=== PATIENT | female | born 1980 | race Caucasian/White ===

== ENCOUNTER 2020-03-07 17:45 | Emergency (ER) | payer OTHER, SELFPAY ==
[2020-03-07 18:25] VITALS: BP 195/83; PULSE 104; RESP 18; TEMP 36.6; O2SAT 98; BMI 39.9
[2020-03-07 18:45] VITALS: BP 138/75; PULSE 103; RESP 15; TEMP 36.6
--- NOTE | 2020-03-07 19:31 | ED.GENADULT ---
HPI - General Adult General Chief complaint: General Medical Stated complaint: RECTAL PAIN Time Seen by Provider: 03/07/20 19:20 Source: patient Mode of arrival: ambulatory Limitations: no limitations History of Present Illness HPI narrative: patient presents to ED for rectal pain and rectal bleeding. patient denies any abdominal pain, dizziness, weakness. Patient denies any recent rectal trauma. Patient thinks she has a hemorrhoid. Patient states symptoms been occurring for 1 week Related Data Home Medications Medication Instructions Recorded Confirmed clonidine HCl 0.2 mg PO BEDTIME 03/07/20 03/07/20 lorazepam 1 mg PO QID 03/07/20 03/07/20 omeprazole 40 mg PO DAILY 03/07/20 03/07/20 Previous Rx's Medication Instructions Recorded docusate sodium [Colace] 100 mg PO BID #20 cap 03/07/20 hydrocortisone acetate [Anusol-HC] 25 mg MT BID #12 ea 03/07/20 naproxen 500 mg PO BID PRN #20 tab 03/07/20 Allergies Allergy/AdvReac Type Severity Reaction Status Date / Time amoxicillin [AMOXICILLIN] Allergy Unknown HIVES Verified 03/07/20 18:01 Review of Systems Review of Systems: Yes all other systems are reviewed and are negative Constitutional: Constitutional: Reports as per HPI, Reports no additional constitutional complaints and Denies fatigue Eyes: Eyes: Reports as per HPI and Reports no additional eye complaints ENT: Reports system reviewed and no additional complaints, except as documented Cardiovascular: Cardiovascular: Reports as per HPI, Reports no additional cardiovascular complaints, Denies Abdominal Cramping after Meds, Denies Abdominal Distension, Denies acrocyanosis, Denies chest pain, Denies chest pain at rest, Denies chest pain with activity, Denies irregular heart rhythm, Denies lightheadedness, Denies dyspnea, Denies dyspnea on exertion, Denies orthopnea and Denies paroxysmal nocturnal dyspnea Respiratory: Respiratory: Reports as per HPI, Reports no additional respiratory complaints, Denies dyspnea and Denies dyspnea on exertion Gastrointestinal: Gastrointestinal: Reports hematochezia Comments: rectal pain Genitourinary: Genitourinary: Reports no additional female genitourinary complaints, Denies abnormal vaginal bleeding, Denies dyspareunia, Denies dysmenorrhea, Denies dysuria, Denies urinary incontinence, Denies urinary hesitancy and Denies urinary urgency Musculoskeletal: Musculoskeletal: Reports no additional musculoskeletal complaints Endocrine: Endocrine: Denies fatigue [facility] Past Medical History Medical History (Updated 03/08/20 @ 00:00 by Ari Cain) Anxiety delivery delivered Depression PTSD (post-traumatic stress disorder) Surgical History (Updated 03/07/20 @ 18:27 by Irish Lee) Hx of appendectomy Social History Social History Alcohol intake: never Smoking Status: Former smoker Use of substances other than those prescribed or required for medical reasons: Yes Substance Use Type: Marijuana Advance Directives: No Advance Directives Information Provided: No Physical Exam Vital Signs and I&O and Narrative: Vital Signs and I&O: Vital Signs Temp 98 F 03/07/20 20:09 Pulse 98 03/07/20 20:09 Resp 14 03/07/20 20:09 BP 157/72 H 03/07/20 20:09 Pulse Ox 96 03/07/20 20:09 Intake & Output 03/07/20 03/07/20 03/08/20 06:59 18:59 06:59 Weight 99 kg Body Mass Index 39.9 Const: General: cooperative, healthy appearing and comfortable Orientation/consciousness: oriented to person, oriented to place, oriented to time and patient oriented x3 HENMT: Head: Yes normal to inspection Mouth: Normal oral and palatal mucosa present Eyes: General: appearance normal, both eyes and all related structures Neck: Neck: Yes normal visual inspection and Yes full ROM Chest: Chest palpation & inspection: normal inspection of the chest and normal palpation of entire chest wall Resp: Effort & Inspection: normal respiratory effort, able to speak in complete sentences, normal respiratory pattern, no audible wheezes and no cough Auscultation: clear to auscultation bilaterally Cardio: Jugular venous distension: no JVD Rhythm: regular rhythm Heart sounds: S1 normal heart sound present and S2 normal heart sound present GI: Rectal Exam - Female: External hemorrhoid(s) present ( external hemorrhoid that is tender to palpation, and not thrombosed) : General: No CVA tenderness and Yes no CVA tenderness Back/Spine/Pelvis: Back: no CVA tenderness, No CVA tenderness, No mass, No erythema, No warmth, No sacral edema, No ecchymosis and No back tenderness Skin: General skin exam: no rashes or lesions noted Neuro: General: oriented to person, oriented to place, oriented to time, patient oriented x3, gait normal and CN's II-XI intact bilaterally Cranial nerves: Yes CN's II-XII intact bilaterally Extrem: General: Yes normal to inspection and Yes full ROM Psych: Appearance: grossly normal Course Course Course Narrative: Patient has external hemorrhoid that is not thrombosed. Hemorrhoid does not to be need to be cut. Patient has dried blood around rectum and hemorrhoid. Patient's blood pressure improved without any medical intervention. Patient does states when she is anxious blood pressure is high. Patient informed to follow-up with her PCP to recheck her blood pressure. Reevaluation(s) Reevaluation #1: Patient presently not in any distress. Patient educated on hemorrhoid care such as Sitz bath, Anusol cream, and Colace. Patient will be referred to surgery. Presently no intervention needed Time: 19:51 Medical Decision Making MDM Narrative Medical decision making narrative: external hemorrhoid that is not thrombosed. Patient will be discharged with Anusol, Colace, and pain meds. Patient will be referred to surgery. Lab Data Lab results reviewed: Yes I reviewed the patient's lab results. Labs: Lab Results 03/07/20 03/07/20 Range/Units 19:26 19:26 Urine Color YELLOW Urine Appearance CLEAR Urine pH 7.5 (5.0-8.0) Ur Specific [place] 1.015 (1.005-1.025) Urine Protein 1+ H (NEG-TRACE) MG/DL Urine Glucose (UA) NEG (NEG) MG/DL Urine Ketones NEG (NEG) MG/DL Urine Blood 2+ H (NEG) Urine Nitrite NEG (NEG) Ur Leukocyte Esterase TRACE H (NEG) Urine RBC 10-14 H (0) /HPF Urine WBC 0-2 (0-4) /HPF Ur Squamous Epith Cells 1+ /LPF Urine Bacteria 1+ /LPF Urine Test NEGATIVE (NEGATIVE) Discharge Plan Discharge Clinical Impression: Hemorrhoid Patient Disposition: Home, Self-Care Instructions: Hemorrhoids (ED) Additional Instructions: Return to the ED immediately for worsening bleeding, severe rectal pain, dizziness, weakness, headache, vomiting, vomiting blood, bloody urine, or any other concerning symptoms. Please follow-up with surgeon will be referred to. Recommend Sitz bath. Recommend high-fiber diet. Also recommend oral hydration with water. Also follow-up with your PCP due to 1 episode of elevated blood pressure in the ED. Prescriptions: New hydrocortisone acetate [Anusol-HC] 25 mg suppository 25 mg MT BID Qty: 12 RF: 0 docusate sodium [Colace] 100 mg capsule 100 mg PO BID Qty: 20 RF: 0 naproxen 500 mg tablet 500 mg PO BID PRN (Reason: pain) Qty: 20 RF: 0 No Action omeprazole 40 mg Capsule,Delayed Release(Dr/Ec) 40 mg PO DAILY RF: 0 lorazepam 1 mg Tablet 1 mg PO QID RF: 0 clonidine HCl 0.1 mg Tablet 0.2 mg PO BEDTIME RF: 0 Referrals: Yvan Allen MD [Physician] - 2 days ( External hemorrhoids for 1 week. Hemorrhoid is not thrombosed.) Interventions: ED Discharge Assessment Last Done: 03/07/20 20:08 Discharge Date/Time: 03/07/20 20:14
[2020-03-07 19:35] LABS: Glucose Urine UA NEG (NEG); Leukocyte Esterase Urine TRACE (NEG); Nitrite Urine NEG (NEG); PH 7.5 (5.0-8.0); Specific Gravity - Urine 1.015 (1.005-1.025); Urine Blood 2+ (NEG); Urine Ketones NEG (NEG); Urine Protein 1+ MG/DL (NEG-TRACE)
[2020-03-07 19:36] LABS: Appearance Urine CLEAR; Color Urine YELLOW; UPreg QC Valid YES; Urine Pregnancy NEGATIVE (NEGATIVE)
[2020-03-07 19:41] LABS: Bacteria Urine 1+ /LPF; Squamous Epithelial Cell Urine 1+ /LPF; WBC Urine 0-2 /HPF (0-4)
[2020-03-07 20:09] VITALS: BP 157/72; PULSE 98; RESP 14; TEMP 36.6; O2SAT 96
== END 2020-03-07 20:14 | disposition home or self-care (01) ==
PROVIDERS: Physician Assistant; Emergency Provider Internal Medicine; PCP Internal Medicine
DX: K64.4 Residual hemorrhoidal skin tags (principal); K62.89 Other specified diseases of anus and rectum; F12.90 Cannabis use, unspecified, uncomplicated; Z87.891 Personal history of nicotine dependence
CPT/HCPCS: 81001; 81025; 99284